=== PATIENT | male | born 1985 | race Caucasian/White ===

== ENCOUNTER 2018-01-21 19:38 | Emergency (ER) | payer OTHER ==
[2018-01-21] MEDS ORDERED: HYDROmorphONE/DILAUDID 2 MG/ML INJ IVP ONE (20:09)
--- NOTE | 2018-01-21 20:10 | EDPHY ---
H & P Stated Complaint: Thermal burn to left wrist Time Seen by Provider: 01/21/18 20:01 HPI/ROS: CHIEF COMPLAINT: Burn HISTORY OF PRESENT ILLNESS: The patient is a 32-year-old man who comes to the emergency department complaining of a burn to his left hand and arm. He states that he fell into a hot flat top stove at work. This happened just prior to arrival. He denies other injuries. Does not involve the fingers. REVIEW OF SYSTEMS: Constitutional: denies: chills, fever, recent illness, recent injury EENTM: denies: blurred vision, double vision, nose congestion Respiratory: denies: cough, shortness of breath Cardiac: denies: chest pain, irregular heart rate, lightheadedness, palpitations Gastrointestinal/Abdominal: denies: abdominal pain, diarrhea, nausea, vomiting, blood streaked stools Genitourinary: denies: dysuria, frequency, hematuria, pain Musculoskeletal: denies: joint pain, muscle pain Skin: See HPI Neurological: denies: headache, numbness, paresthesia, tingling, dizziness, weakness Hematologic/Lymphatic: denies: blood clots, easy bleeding, easy bruising Immunologic/allergic: denies: HIV/AIDS, transplant EXAM: GENERAL: Well-appearing, well-nourished and in no acute distress. HEAD: Atraumatic, normocephalic. EYES: Pupils equal round and reactive to light, extraocular movements intact, sclera anicteric, conjunctiva are normal. ENT: TMs normal, nares patent, oropharynx clear without exudates. Moist mucous membranes. NECK: Normal range of motion, supple without lymphadenopathy or JVD. LUNGS: Breath sounds clear to auscultation bilaterally and equal. No wheezes rales or rhonchi. HEART: Regular rate and rhythm without murmurs, rubs or gallops. ABDOMEN: Soft, nontender, normoactive bowel sounds. No guarding, no rebound. No masses appreciated. BACK: No CVA tenderness, no spinal tenderness, step-offs or deformities EXTREMITIES: Normal range of motion, no pitting or edema. No clubbing or cyanosis. NEUROLOGICAL: Cranial nerves II through XII grossly intact. Normal speech, normal gait. 5/5 strength, normal movement in all extremities, normal sensation PSYCH: Normal mood, normal affect. SKIN: See diagram, non circumferential, does not involve fingers or creases of hand. Only involves the proximal palm in 2nd degree and some 1st degree up the anterior aspect of the forearm. Source: Patient Exam Limitations: No limitations - Personal History Current Tetanus/Diphtheria Vaccine: Unsure Current Tetanus Diphtheria and Acellular Pertussis (TDAP): Unsure - Medical/Surgical History Hx Asthma: No Hx Chronic Respiratory Disease: No Hx Diabetes: No Hx Cardiac Disease: No Hx Renal Disease: No Hx Cirrhosis: No Hx Alcoholism: No Hx HIV/AIDS: No Hx Splenectomy or Spleen Trauma: No Other PMH: Appendectomy. ortho surgery - Family History Significant Family History: No pertinent family hx - Social History Smoking Status: Current every day smoker Alcohol Use: Sober Drug Use: None Constitutional: Initial Vital Signs Temperature (C) 36.8 C 01/21/18 19:59 Heart Rate 77 01/21/18 19:59 Respiratory Rate 17 01/21/18 19:59 Blood Pressure 128/89 H 01/21/18 19:59 O2 Sat (%) 98 01/21/18 19:59 O2 Delivery Mode [Post Room Air Procedure 3rd] O2 Delivery Mode [Post Nasal Cannula Procedure 2nd] O2 Delivery Mode [Post Non-Rebreather Mask Procedure 1st] O2 Delivery Mode [Procedural Non-Rebreather Mask 3rd] O2 Delivery Mode [Procedural Non-Rebreather Mask 2nd] O2 Delivery Mode [Procedural Non-Rebreather Mask 1st] O2 Delivery Mode [.Immediate Non-Rebreather Mask Pre-Procedure] O2 Delivery Mode Room Air O2 (L/minute) [Post Procedure 1 2nd] O2 (L/minute) [Post Procedure 15 1st] Allergies/Adverse Reactions: No Known Allergies Allergy (Verified 12/27/15 12:48) Home Medications: Medication Instructions Recorded oxyCODONE/APAP 5/325 [Percocet 1 - 2 tab PO Q4H PRN #10 tab 01/21/18 5/325 (*)] ED Images - Extremities Hands Front Left/Right: 1 - 2nd degree burn with skin sloughing no eschar 2 - 1st degree burn extending up to arm, non circumferential Medical Decision Making Procedures: Procedure: Procedural sedation. Indication: Debridement. A pre-sedation evaluation was completed on the patient just prior to the procedure. Patient is an appropriate candidate for procedural sedation with ASA class 2 E. The risks of the sedation were discussed including but not limited to dysrhythmia, need for airway intervention or general anesthesia, disability, ; and verbal consent obtained. A timeout was observed and patient's identity confirmed. The patient was sedated with ketamine and propofol. The patient was monitored with continuous pulse oximetry, capnography , and quality assurance monitor final. There were no complications and no significant hypoxemia. I remained at the bedside for the sedation. The total time I spent in the procedural sedation was 15 min. Debridement: While sedated the patient was successfully debrided with sterile gauze and water and dressed with sterile gauze, bacitracin and nonadherent dressing. ED Course/Re-evaluation: The patient tolerated procedural sedation well. His wound was debrided by myself with sterile gauze. He was then wrapped by me with bacitracin and nonadherent dressing sterile gauze. 9:40 p.m. the patient is doing well. He is eager to leave. I will give him pain medication prescription. Differential Diagnosis: Partial list of the Differential diagnosis considered include but were not limited to; 2nd degree burn, 1st degree burn and although unlikely based on the history and physical exam, I also considered third-degree burn, non accidental trauma. I discussed these differential diagnoses and the plan with the patient as well as the usual and expected course. The patient understands that the diagnosis is provisional and that in medicine we are not always correct and that further workup is often warranted. Usual and customary warnings were given. All of the patient's questions were answered. The patient was instructed to return to the emergency department should the symptoms at all worsen or return, otherwise to followup with the physician as we discussed. - Data Points Medications Given: Discontinued Medications Hydromorphone HCl (Dilaudid) 1 mg IVP EDNOW ONE Stop: 01/21/18 20:10 Last Admin: 01/21/18 20:14 Dose: 1 mg Sodium Chloride (Ns) 1,000 mls @ 0 mls/hr IV ONCE ONE PRN Reason: Wide Open Stop: 01/21/18 20:19 Last Admin: 01/21/18 20:19 Dose: 1,000 mls Ketamine HCl (Ketamine) 20 mg IVP EDNOW ONE Stop: 01/21/18 21:20 Last Admin: 01/21/18 21:20 Dose: 20 mg Oxycodone/Acetaminophen (Percocet 5/325mg Prepack#4) 1 btl TAKEHOME EDNOW ONE Stop: 01/21/18 21:06 Last Admin: 01/21/18 21:24 Dose: 1 btl Propofol (Diprivan) 90 mg IVP EDNOW ONE Stop: 01/21/18 21:19 Last Admin: 01/21/18 21:21 Dose: 90 mg Departure - Departure Disposition: Home, Routine, Self-Care Clinical Impression: Burn of second degree of left hand, unspecified site, initial encounter Condition: Fair Instructions: Oxycodone/Acetaminophen (By mouth), Second Degree Burn (ED) Referrals: Vane Huerta DO [Doctor of Osteopathy] - As per Instructions Zeinab Barragan MD [Medical Doctor] - As per Instructions Prescriptions: oxyCODONE/APAP 5/325 [Percocet 5/325 (*)] 1 - 2 tab PO Q4H PRN #10 tab PRN Reason: Pain, Severe
[2018-01-21] MEDS ORDERED: NS 1,000 ML IV ONE (20:18)
[2018-01-21] MEDS ORDERED: PROPOFOL 200 MG/20 ML VIAL ONE (20:47)
[2018-01-21] MEDS ORDERED: KETAMINE 200 MG/20 ML VIAL ONE (20:47)
[2018-01-21] MEDS ORDERED: OXYCODONE/APAP 5/325MG PREPACK#4 BTL TAKEHOME ONE (21:05)
[2018-01-21] MEDS ORDERED: PROPOFOL 200 MG/20 ML VIAL IVP ONE (21:18)
[2018-01-21] MEDS ORDERED: KETAMINE 200 MG/20 ML VIAL IVP ONE (21:19)
[2018-01-21 21:47] VITALS: BP 132/85
== END 2018-01-21 21:53 | disposition home or self-care (01) ==
LOC: CED 19:38
DX: T23.202A Burn of second degree of left hand, unspecified site, initial encounter (principal); F17.200 Nicotine dependence, unspecified, uncomplicated; T31.0 Burns involving less than 10% of body surface; X15.0XXA Contact with hot stove (kitchen), initial encounter; Y92.69 Other specified industrial and construction area as the place of occurrence of the external cause; Y99.0 Civilian activity done for income or pay; Y93.89 Activity, other specified
CPT/HCPCS: 96374; J1170; J2704